=== PATIENT | female | born 1995 | race American Indian/Alaskan Native ===

== ENCOUNTER 2018-05-13 04:14 | Emergency (ER) | payer BC, OTHER ==
[2018-05-13 04:22] VITALS: BP 136/83
--- NOTE | 2018-05-13 05:58 | Emergency Department Report ---
ED Back Pain/Injury HPI - General Chief Complaint: Back Pain/Injury Stated Complaint: BACK PAIN Time Seen by Provider: 05/13/18 05:54 Source: patient Limitations: No Limitations - History of Present Illness Initial Comments: Present 23-year-old female who presents for left upper back pain after reaching twisting injury taken , now pain with movement ando s pt f or I&D if abscess this developed for year to see i Complaint: back pain, back injury Onset/Timin -: days(s) Similar Symptoms Previously: Yes Place: home Radiation: none Severity scale (0 -10): 2 Quality: burning, sharp Improves With: none, immobilization Worsens With: walking, deep breaths/cough Associated Symptoms: denies: numbness, difficulty urinating, incontinence, fever/chills - Related Data Previous Rx's Medication Instructions Recorded Last Taken Type Cyclobenzaprine [Flexeril] 10 mg PO TID PRN #30 tablet 05/13/18 Unknown Rx Menthol/Camphor [[place] 1 applicatio TP QID PRN #1 tube 05/13/18 Unknown Rx Ointment] Naproxen 500 mg PO BID PRN #30 tablet 05/13/18 Unknown Rx Allergies Allergy/AdvReac Type Severity Reaction Status Date / Time No Known Allergies Allergy Verified 05/13/18 04:22 ED Review of Systems ROS: Stated complaint: BACK PAIN Other details as noted in HPI Constitutional: denies: chills, fever Eyes: denies: eye pain, eye discharge, vision change ENT: denies: ear pain, throat pain Respiratory: denies: cough, shortness of breath, wheezing Cardiovascular: denies: chest pain, palpitations Endocrine: no symptoms reported Gastrointestinal: denies: abdominal pain, nausea, diarrhea Genitourinary: denies: urgency, dysuria, discharge Musculoskeletal: denies: back pain, joint swelling, arthralgia Skin: denies: rash, lesions Neurological: denies: as per HPI, headache, weakness, paresthesias Psychiatric: denies: anxiety, depression Hematological/Lymphatic: denies: easy bleeding, easy bruising ED Past Medical Hx - Past Medical History Previous Medical History?: No - Surgical History Past Surgical History?: Yes Additional Surgical History: lumpectomy left breast - Social History Smoking Status: Never Smoker Substance Use Type: None - Medications Home Medications: Home Medications Medication Instructions Recorded Confirmed Last Taken Type Cyclobenzaprine [Flexeril] 10 mg PO TID PRN #30 tablet 05/13/18 Unknown Rx Menthol/Camphor [[place] 1 applicatio TP QID PRN #1 tube 05/13/18 Unknown Rx Ointment] Naproxen 500 mg PO BID PRN #30 tablet 05/13/18 Unknown Rx ED Physical Exam - General Limitations: No Limitations General appearance: alert, in no apparent distress - Head Head exam: Present: atraumatic, normocephalic - Eye Eye exam: Present: normal appearance, PERRL, EOMI Pupils: Present: normal accommodation - ENT ENT exam: Present: mucous membranes moist, TM's normal bilaterally, normal external ear exam. Absent: normal exam - Neck Neck exam: Present: normal inspection, full ROM (fluid leg). Absent: tenderness, meningismus, lymphadenopathy, thyromegaly - Expanded Neck Exam Expanded Neck exam: Absent: tenderness, midline deformity, anterior neck swelling, thyroid mass, carotid bruit, tracheal deviation - Respiratory Respiratory exam: Present: normal lung sounds bilaterally, chest wall tenderness (left lateral chest wall tenderness ). Absent: respiratory distress, wheezes, rhonchi - Cardiovascular Cardiovascular Exam: Present: regular rate, normal rhythm, normal heart sounds. Absent: systolic murmur, diastolic murmur, rubs, gallop - GI/Abdominal GI/Abdominal exam: Present: soft, normal bowel sounds. Absent: distended, guarding, rebound, bruit, hernia - Rectal Rectal exam: Present: deferred - Extremities Exam Extremities exam: Present: normal inspection - Back Exam Back exam: Present: normal inspection, full ROM, tenderness (left lateral chest wall tenderness no stepoff no crepitus no deformity ), muscle spasm. Absent: CVA tenderness (R), CVA tenderness (L), paraspinal tenderness, rash noted - Neurological Exam Neurological exam: Present: alert, oriented X3, CN II-XII intact, normal gait, reflexes normal. Absent: motor sensory deficit - Expanded Neurological Exam Expanded Patient oriented to: Present: person, place, time Speech: Present: fluid speech Cranial nerves: EOM's Intact: Normal, Gag Reflex: Normal, Tongue Deviation: Normal, Nystagmus: Normal, Facial Sensation: Normal Motor strength exam: RUE: 5, LUE: 5, RLE: 5, LLE: 5 DTR: bicep (R): 2+, bicep (L): 2+, ankle (R): 2+, ankle (L): 2+ Best Eye Response ([place]): (4) open spontaneously Best Motor Response ([place]): (6) obeys commands Best Verbal Response ([place]): (5) oriented [place] Total: 15 - Psychiatric Psychiatric exam: Present: normal affect, normal mood - Skin Skin exam: Present: warm, dry, intact, normal color. Absent: rash ED Course Vital Signs 05/13/18 04:18 Temperature 99.1 F Pulse Rate 98 H Respiratory 16 Rate Blood Pressure 136/83 O2 Sat by Pulse 99 Oximetry ED Medical Decision Making - Radiology Data Radiology results: report reviewed, image reviewed Ordering Physician: SHI MORSE NP Date of Service: 05/13/18 Procedure(s): XR ribs UNI w PA chest 3+V LT Accession Number(s): [id number] cc: SHI MORSE NP Fluoro Time In Minutes: PROCEDURE: XR RIBS UNI W PA CHEST 3+V LT TECHNIQUE: A PA view the chest was obtained along with 2 views of the left ribs. HISTORY: rib pain COMPARISONS: None FINDINGS: There is no evidence of acute rib fracture. The lungs are clear. There is no evidence of pneumothorax or pleural effusion. The heart size is normal. IMPRESSION: Normal exam. No evidence of left-sided rib fracture.. This document is electronically signed by Donald Broussard MD., May 13 2018 06:23:04 AM ET Transcribed By: RB Dictated By: DONALD BROUSSARD MD Electronically Authenticated By: DONALD BROUSSARD MD Signed Date/Time: 05/13/18 0624 DD/ [id number] TD/TT: 05/13/18 0617 - Medical Decision Making This is costochondritis and NSAIDs moist heat therapy follow with PCP in 2-3 days patient given referral satisfactory. Patient has had same in 2 days patient will return to ED should symptoms worsen pain is improved with NSAIDs is no shortness of breath no wheezing no flail chest no deformity no crepitus Critical care attestation.: If time is entered above; I have spent that time in minutes in the direct care of this critically ill patient, excluding procedure time. ED Disposition Clinical Impression: Costochondritis Disposition: DC-01 TO HOME OR SELFCARE Is pt being admited?: No Does the pt Need Aspirin: No Condition: Stable Instructions: Costochondritis (ED) Prescriptions: Cyclobenzaprine [Flexeril] 10 mg PO TID PRN #30 tablet PRN Reason: Muscle Spasm Naproxen 500 mg PO BID PRN #30 tablet PRN Reason: pain Menthol/Camphor [[place] Ointment] 1 applicatio TP QID PRN #1 tube PRN Reason: pain Referrals: PRIMARY CARE, [Primary Care Provider] - 3-5 Days [facility] [Outside] - 3-5 Days Forms: Work/School Release Form(ED) Time of Disposition: 06:46
--- NOTE | 2018-05-13 06:24 | XRay Report ---
PROCEDURE: XR RIBS UNI W PA CHEST 3+V LT TECHNIQUE: A PA view the chest was obtained along with 2 views of the left ribs. HISTORY: rib pain COMPARISONS: None FINDINGS: There is no evidence of acute rib fracture. The lungs are clear. There is no evidence of pneumothorax or pleural effusion. The heart size is normal. IMPRESSION: Normal exam. No evidence of left-sided rib fracture.. This document is electronically signed by Donald Broussard MD., May 13 2018 06:23:04 AM ET
== END 2018-05-13 06:50 | disposition home or self-care (01) ==
LOC: ED 04:14
DX: M94.0 Chondrocostal junction syndrome [Tietze] (principal)
CPT/HCPCS: 99283